=== PATIENT | female | born 2000 | race Two or more races ===

== ENCOUNTER 2024-08-04 22:43 | Emergency (ER) | payer BC, MEDICAID ==
[2024-08-04 22:45] VITALS: PULSE 83; RESP 20; O2SAT 100
== END 2024-08-05 02:00 | disposition left against medical advice (07) ==
LOC: ER 22:43
DX: R10.9 Unspecified abdominal pain (principal); Z53.21 Procedure and treatment not carried out due to patient leaving prior to being seen by health care provider